=== PATIENT | male | born 1940 | race Two or more races ===

== ENCOUNTER 2017-10-08 21:53 | Emergency (ER) | payer MEDICARE, OTHER ==
[~2017-10-08] VITALS: Ht 180.3 cm; Wt 108.0 kg
[~2017-10-08 21:53] MED LIST: ALBU90OI INH; ALBU90OI6; AMLO5; ANDROGEL1.25 GM; ASPI81CH; ASPI81EC PO; ATEN25; ATOR40TA; ATOR40TA PO; AZEL137S; DESL5; DESL5 PO; ESOM20; ESOM20 PO; EXEN5PENI; EXEN5PENI SQ; EZET10; EZET10 PO; FLUSAL1005; FLUSAL2505; FLUT44OIA; FURO40; FURO40 PO; GLIM4; GLIM4 PO; GLIP10ER PO; INSDET100 SQ; INSLIS75I SC; LEVO750 PO; LOSA50; METF850; METF850 PO; MONT10T PO; MULVITMINF; NEBI5 PO; OLME20 PO; OLME20-12.; OMEP20ER PO; PIOG15; PIOG45 PO; PROCODE120 PO; Percocet 5-3251 EACH PO; QUIN260; SITA100T2 PO; TAMS.4ER PO
[2017-10-08 22:38] LABS: BASOPHILS ABSOLUTE AUTO 0.04 K/mm3 (0.00-0.23); BASOPHILS PERCENT AUTO 1 % (0-2); EOSINOPHILS ABSOLUTE AUTO 0.32 K/mm3 (0.00-0.68); EOSINOPHILS PERCENT AUTO 4 % (0-6); Hemoglobin 13.6 g/dL (13.5-17.5); IMMATURE GRAN ABSOLUTE AUTO 0.04 K/mm3 (0.00-0.10); IMMATURE GRAN PERCENT AUTO 1 % (0-1); LYMPHOCYTES PERCENT AUTO 18 % (21-46); MONOCYTES ABSOLUTE AUTO 0.65 K/mm3 (0.16-1.47); MONOCYTES PERCENT AUTO 8 % (4-13); Mean Corpuscular HGB 27.4 pg (26.0-34.0); Mean Corpuscular HGB Conc 33.2 g/dL (31.5-36.5); Mean Corpuscular Volume 83 fL (80-100); Mean Platelet Volume 9.9 fL (9.1-12.4); NEUTROPHILS ABSOLUTE AUTO 5.72 K/mm3 (1.96-9.15); NEUTROPHILS PERCENT AUTO 69 % (41-73); Platelet Count 245 K/mm3 (150-400); RDW Coefficient Variation 14.3 % (11.7-14.2); RDW Standard Deviation 42.8 fL (35.1-46.3); Red Blood Cell Count 4.97 M/mm3 (4.30-5.90); White Blood Cell Count 8.27 K/mm3 (4.00-11.30)
[2017-10-08 22:58] LABS: Alanine Aminotransfer (ALT/SGP 34 U/L (12-78); Albumin, Blood 3.5 g/dL (3.4-5.0); Albumin/Globulin Ratio 1.1 (0.8-1.8); Alk Phos 135 U/L (50-136); Anion Gap 9 mmol/L (6-16); Aspartate Aminotrans (AST/SGOT 29 U/L (12-37); Bilirubin, Total 0.4 mg/dL (0.1-1.0); Blood Urea Nitrogen 22 mg/dL (8-24); Bun/Creatinine Ratio 17.5 (12.0-20.0); CO2, Blood 25 mmol/L (21-32); Calcium, Blood 8.9 mg/dL (8.5-10.1); Chloride, Blood 105 mmol/L (98-108); Creatinine, Blood 1.26 mg/dL (0.60-1.20); Globulin, Blood 3.3 g/dL (2.2-4.0); Glomerular Filtration Rate 59 (60-); Glucose, Blood 289 mg/dL (70-99); Potassium, Blood 3.9 mmol/L (3.5-5.5); Sodium, Blood 139 mmol/L (136-145); Total Protein, Blood 6.8 g/dL (6.4-8.2); Troponin I <0.015 ng/mL (0.000-0.040)
[2017-10-10] MEDS ORDERED: TRESIBA FL200 UNIT/1 (14:44)
[2017-10-10] MEDS ORDERED: METF500C PO (14:44)
[2017-10-10] MEDS ORDERED: Excedrin Extra1 EACH PO (14:45)
[2017-10-10] MEDS ORDERED: AMLO10 PO (14:45)
[2017-10-10] MEDS ORDERED: Allegra-D 12 H1 EACH PO (14:45)
== END 2017-10-09 00:04 | disposition home or self-care (01) ==
LOC: ER 21:53
PROVIDERS: Physician Assistant
DX: Z45.018 Encounter for adjustment and management of other part of cardiac pacemaker (principal); I10 Essential (primary) hypertension; E11.9 Type 2 diabetes mellitus without complications; I25.10 Atherosclerotic heart disease of native coronary artery without angina pectoris; Z88.0 Allergy status to penicillin; Z79.899 Other long term (current) drug therapy; Z79.82 Long term (current) use of aspirin
CPT/HCPCS: 80053; 84484; 85025; 93005; 93010; 99283

== ENCOUNTER 2017-10-11 05:44 | Day surgery (SDC) | payer MEDICARE, OTHER ==
[~2017-10-11] VITALS: Ht 172.7 cm; Wt 109.0 kg
[~2017-10-11 05:44] MED LIST changes: +AMLO10 PO; +Allegra-D 12 H1 EACH PO; +Excedrin Extra1 EACH PO; +METF500C PO; +TRESIBA FL200 UNIT/1
== END 2017-10-11 22:45 | disposition home or self-care (01) ==
LOC: MHTC 05:44
PROC: 0JH606Z Insertion of Pacemaker, Dual Chamber into Chest Subcutaneous Tissue and Fascia, Open Approach (ICD-10-PCS; principal; 2017-10-11)
PROC: 0JPT0PZ Removal of Cardiac Rhythm Related Device from Trunk Subcutaneous Tissue and Fascia, Open Approach (ICD-10-PCS; principal; 2017-10-11)
DX: Z45.010 Encounter for checking and testing of cardiac pacemaker pulse generator [battery] (principal); I49.5 Sick sinus syndrome; I25.10 Atherosclerotic heart disease of native coronary artery without angina pectoris; I10 Essential (primary) hypertension; E78.00 Pure hypercholesterolemia, unspecified; E11.9 Type 2 diabetes mellitus without complications; E03.9 Hypothyroidism, unspecified; Z88.8 Allergy status to other drugs, medicaments and biological substances; Z79.899 Other long term (current) drug therapy; Z90.49 Acquired absence of other specified parts of digestive tract; Z95.1 Presence of aortocoronary bypass graft; Z87.891 Personal history of nicotine dependence
CPT/HCPCS: 33228; 82947; 93005; 93010; 99152; 99153; C1785; J0690; J1644; J2250; J3010; J7030; J7040

== ENCOUNTER → 2018-07-14 | Outpatient (CLI) | payer MEDICARE, OTHER ==
[~2018-07-14] MED LIST changes: +Humalog100 UNIT/1; +KETO200ER PO; +LEVSOD100 PO
== END | disposition home or self-care (01) ==
LOC: LAB 16:20 → LAB SHORT 16:20
DX: L08.9 Local infection of the skin and subcutaneous tissue, unspecified (principal); L57.0 Actinic keratosis; D48.5 Neoplasm of uncertain behavior of skin; L82.0 Inflamed seborrheic keratosis; L82.1 Other seborrheic keratosis; L81.4 Other melanin hyperpigmentation; D18.01 Hemangioma of skin and subcutaneous tissue
CPT/HCPCS: 87070; 87077; 87147; 87186; 87205

== ENCOUNTER 2020-06-02 13:20 | Day surgery (SDC) | payer MEDICARE, OTHER ==
[~2020-06-02] VITALS: Ht 180.3 cm; Wt 231.4 kg
--- NOTE | 2020-06-02 14:01 | NUR ---
06/02/20 1401 Milady [facility] V 1 FAILED IV IN L HAND, 1 FAILED IV IN L FOREARM, IV PLACED IN L AC.
[2020-08-03] MEDS ORDERED: AMLO5 PO (10:42)
[2020-08-03] MEDS ORDERED: ATOR40TA PO (10:42)
[2020-08-03] MEDS ORDERED: Aspirin EC81 MG PO (10:42)
[2020-08-03] MEDS ORDERED: VITAMIN D325 MC3 PO (10:42)
[2020-08-03] MEDS ORDERED: FURO40 PO (10:43)
[2020-08-03] MEDS ORDERED: GLIP10 PO (10:43)
[2020-08-03] MEDS ORDERED: ALLEGRA ALLERGY60 MG PO (10:43)
[2020-08-03] MEDS ORDERED: FURO20 PO (10:43)
[2020-08-03] MEDS ORDERED: HUMALOG KW100 UNIT/1 (10:44)
[2020-08-03] MEDS ORDERED: LEVSOD100 PO (10:45)
[2020-08-03] MEDS ORDERED: Ketoconazole120 ML (10:45)
[2020-08-03] MEDS ORDERED: Ketoconazole15 GM (10:45)
[2020-08-03] MEDS ORDERED: SITA100T2 PO (10:46)
[2020-08-03] MEDS ORDERED: OMEP20ER PO (10:46)
[2020-08-03] MEDS ORDERED: METF500 (10:46)
[2020-08-03] MEDS ORDERED: Bystolic20 MG PO (10:46)
[2020-08-03] MEDS ORDERED: MONT10T PO (10:46)
[2020-08-03] MEDS ORDERED: FLOMAX0.4 MG PO (10:47)
== END 2020-06-02 16:53 | disposition home or self-care (01) ==
LOC: ORSCSDS 13:20
PROVIDERS: Podiatrist
PROC: 0KNW0ZZ Release Left Foot Muscle, Open Approach (ICD-10-PCS; principal; 2020-06-02 15:15)
DX: M72.2 Plantar fascial fibromatosis (principal); E11.9 Type 2 diabetes mellitus without complications; Z95.0 Presence of cardiac pacemaker; I10 Essential (primary) hypertension; E78.00 Pure hypercholesterolemia, unspecified; E66.9 Obesity, unspecified; Z68.35 Body mass index [BMI] 35.0-35.9, adult; Z79.82 Long term (current) use of aspirin; Z79.4 Long term (current) use of insulin; Z79.899 Other long term (current) drug therapy
CPT/HCPCS: 82947; 88305; J0690; J2250; J2704; J3010

== ENCOUNTER → 2021-01-25 | Outpatient (CLI) | payer MEDICARE, OTHER ==
[~2021-01-25] MED LIST changes: +ALLEGRA ALLERGY60 MG PO; +AMLO5 PO; +Aspirin EC81 MG PO; +Bystolic20 MG PO; +FLOMAX0.4 MG PO; +FURO20 PO; +GLIP10 PO; +HUMALOG KW100 UNIT/1; +Ketoconazole120 ML; +Ketoconazole15 GM; +METF500; +VITAMIN D325 MC3 PO
[2021-01-25 11:04] LABS: C DIFFICILE DNA NEGATIVE (Negative)
== END | disposition home or self-care (01) ==
LOC: LAB SHORT 14:45
PROVIDERS: Internal Medicine Nephrology
DX: N18.30 Chronic kidney disease, stage 3 unspecified (principal); D63.1 Anemia in chronic kidney disease; N25.81 Secondary hyperparathyroidism of renal origin; E55.9 Vitamin D deficiency, unspecified; E78.00 Pure hypercholesterolemia, unspecified; M10.9 Gout, unspecified; R94.5 Abnormal results of liver function studies; R94.6 Abnormal results of thyroid function studies; R76.9 Abnormal immunological finding in serum, unspecified
CPT/HCPCS: 87493

== ENCOUNTER 2021-03-17 10:58 | Emergency (ER) | payer MEDICARE, OTHER ==
[~2021-03-17] VITALS: Ht 180.3 cm; Wt 97.5 kg
[2021-03-17] MEDS ORDERED: Suphedrine PE10 MG PO (13:43)
== END 2021-03-17 13:51 | disposition home or self-care (01) ==
LOC: ER 10:58
DX: J06.9 Acute upper respiratory infection, unspecified (principal); I10 Essential (primary) hypertension; I25.10 Atherosclerotic heart disease of native coronary artery without angina pectoris; Z88.8 Allergy status to other drugs, medicaments and biological substances; Z79.82 Long term (current) use of aspirin; Z79.899 Other long term (current) drug therapy; Z79.84 Long term (current) use of oral hypoglycemic drugs; Z87.891 Personal history of nicotine dependence
CPT/HCPCS: 71045; 99283-25

== ENCOUNTER → 2021-10-17 | Outpatient (CLI) | payer MEDICARE, OTHER ==
[~2021-10-17] MED LIST changes: +Suphedrine PE10 MG PO
== END | disposition home or self-care (01) ==
LOC: LAB SHORT 21:30 → LAB 21:30 → LAB FUT 10-16 15:10
DX: K52.9 Noninfective gastroenteritis and colitis, unspecified (principal)
CPT/HCPCS: 87177; 87209

== ENCOUNTER 2022-09-20 08:33 | Day surgery (SDC) | payer MEDICARE ==
[~2022-09-20] VITALS: Ht 180.3 cm; Wt 101.0 kg
[2022-09-20] VITALS (10 sets, daily range): BP systolic 131–147; BP diastolic 49–67
[~2022-09-20 08:33] MED LIST changes: +FARXIGA10 MG PO; -FLOMAX0.4 MG PO; +FLOMAX0.4 MG UD; +FLUT1DIS2 INH; +NITR.4SL SL; +Nitroglycerin1 EAC3 TOP; +TESTOSTERONE100 MG IL; +TRESIBA FL100 UNIT/2
[2022-09-20 09:21] LABS: BASOPHILS ABSOLUTE AUTO 0.04 K/mm3 (0.00-0.23); BASOPHILS PERCENT AUTO 0 % (0-2); EOSINOPHILS ABSOLUTE AUTO 0.18 K/mm3 (0.00-0.68); EOSINOPHILS PERCENT AUTO 2 % (0-6); IMMATURE GRAN ABSOLUTE AUTO 0.04 K/mm3 (0.00-0.10); IMMATURE GRAN PERCENT AUTO 0 % (0-1); LYMPHOCYTES ABSOLUTE AUTO 1.38 K/mm3 (0.84-5.20); LYMPHOCYTES PERCENT AUTO 14 % (21-46); MONOCYTES ABSOLUTE AUTO 0.65 K/mm3 (0.16-1.47); MONOCYTES PERCENT AUTO 7 % (4-13); Mean Corpuscular HGB 24.6 pg (26.0-34.0); Mean Corpuscular HGB Conc 31.1 g/dL (31.5-36.5); Mean Corpuscular Volume 79 fL (80-100); Mean Platelet Volume 9.7 fL (9.1-12.4); NEUTROPHILS ABSOLUTE AUTO 7.49 K/mm3 (1.96-9.15); NEUTROPHILS PERCENT AUTO 77 % (41-73); Platelet Count 296 K/mm3 (150-400); RDW Coefficient Variation 15.1 % (11.7-14.2); RDW Standard Deviation 43.1 fL (35.1-46.3); Red Blood Cell Count 5.69 M/mm3 (4.30-5.90); White Blood Cell Count 9.78 K/mm3 (4.00-11.30)
[2022-09-20 09:34] LABS: Calcium, Blood 9.3 mg/dL (8.5-10.1); Creatinine, Blood 1.47 mg/dL (0.60-1.20); Potassium, Blood 4.8 mmol/L (3.5-5.5)
[2022-09-20 09:45] LABS: International Normalized Ratio 1.04; Prothrombin Time Results 10.9 Sec (9.7-11.5)
--- NOTE | 2022-09-20 11:25 | NUR ---
PATIENT ARRIVED TO RECOVERY ROOM SITTING UPRIGHT IN RECLINER, CONVERSING APPROPRIATELY. L RADIAL TR BAND FULLY INFLATED. SITE C/D/I SOFT/NONTENDER, NO EVIDNECE OF HEMATOMA. GOOD PLEUTH WAVE. PATIENT DENYING ANY CP. VSS ON ROOM AIR.
--- NOTE | 2022-09-20 11:50 | NUR ---
PATIENT SITTING UPRIGHT IN RECLINER, TOLERATING PO INTAKE WELL. VSS ON ROOM AIR. L TR BAND FULLY INFLATED, SITE C/D/I SOFT/NONTENDER, NO EVIDENCE OF HEMATOMA. GOOD PLEUTH WAVE. VSS ON ROOM AIR.
--- NOTE | 2022-09-20 12:57 | NUR ---
3 CC OF AIR REMOVED FROM L RADIAL TR BAND. SITE C/D/I SOFT/NONTENDER, NO EVIDENCE OF HEMATOMA. GOOD PLEUTH WAVE. PATIENT DENYING ANY PAIN, VSS ON ROOM AIR. DISCHARGE PAPERWORK DISCUSSED WITH PATIENT AND DAUGHTER AT BEDSIDE. ALL QUESTIONS ANSWERED.
--- NOTE | 2022-09-20 13:30 | NUR ---
ALL AIR REMOVED FROM L RADIAL TR BAND. SITE C/D/I SOFT/NONTENDER, NO EVIDENCE OF HEMATOMA. GOOD PLEUTH WAVE. VSS ON ROOM AIR. PATIENT RESTING COMFORTABNLY IN RECLINER.
--- NOTE | 2022-09-20 14:07 | NUR ---
PATIENT AMBULATING WITHOUT DIFFICULTY. PIV REMOVED WITHOUT DIFFICULTY, CATHETER INTACT. L TR BAND REMOVED, CLOTH DOT APPLIED. SITE C/D/I SOFT/NONTENDER, NO EVIDENCE OF HEMATOMA. VSS ON ROOM AIR.
--- NOTE | 2022-09-20 14:20 | NUR ---
PATIENT DISCHARGED HOME AT THIS TIME. ALL PATIENT BELONGINGS AND PAPERWORK LEFT IWHT PATIENT. PATIENT WHEELED TO HOSPITAL ENTRANCE, DAUGHTER, MARYSOL ABLE TO PROVIDE TRANSPORTATION HOME.
== END 2022-09-20 14:20 | disposition home or self-care (01) ==
LOC: MHTC 08:33
PROVIDERS: Internal Medicine Cardiovascular Disease
PROC: B211YZZ Fluoroscopy of Multiple Coronary Arteries using Other Contrast (ICD-10-PCS; principal; 2022-09-20)
DX: R07.89 Other chest pain (principal); R06.00 Dyspnea, unspecified; I25.10 Atherosclerotic heart disease of native coronary artery without angina pectoris; I10 Essential (primary) hypertension; E11.9 Type 2 diabetes mellitus without complications; E78.5 Hyperlipidemia, unspecified; E03.9 Hypothyroidism, unspecified; J45.909 Unspecified asthma, uncomplicated; Z95.1 Presence of aortocoronary bypass graft; Z88.8 Allergy status to other drugs, medicaments and biological substances; Z79.82 Long term (current) use of aspirin; Z95.0 Presence of cardiac pacemaker; Z79.51 Long term (current) use of inhaled steroids; Z79.899 Other long term (current) drug therapy; Z79.4 Long term (current) use of insulin; Z79.890 Hormone replacement therapy; Z79.84 Long term (current) use of oral hypoglycemic drugs
CPT/HCPCS: 76937; 80048; 85025; 85610; 93455; 99152; 99153; A9270; C1769; C1894; J1644; J2250; J3010; J7030; J7050; Q9967

== ENCOUNTER 2023-01-03 20:30 | Emergency (ER) | payer MEDICARE ==
[~2023-01-03] VITALS: Ht 180.3 cm; Wt 94.8 kg
[2023-01-03 20:38] VITALS: BP 162/63
== END 2023-01-03 21:59 | disposition home or self-care (01) ==
LOC: ER 20:30
DX: S90.122A Contusion of left lesser toe(s) without damage to nail, initial encounter (principal); W22.8XXA Striking against or struck by other objects, initial encounter; Z88.8 Allergy status to other drugs, medicaments and biological substances; Z79.899 Other long term (current) drug therapy; Z79.84 Long term (current) use of oral hypoglycemic drugs; Z79.4 Long term (current) use of insulin; Z79.82 Long term (current) use of aspirin; I10 Essential (primary) hypertension; I25.10 Atherosclerotic heart disease of native coronary artery without angina pectoris; Z87.891 Personal history of nicotine dependence
CPT/HCPCS: 73620; 99283-25

== ENCOUNTER 2023-05-20 06:40 | Emergency (ER) | payer MEDICARE ==
[~2023-05-20] VITALS: Ht 180.3 cm; Wt 99.8 kg
[2023-05-20 07:55] LABS: BASOPHILS ABSOLUTE AUTO 0.03 K/mm3 (0.00-0.23); BASOPHILS PERCENT AUTO 0 % (0-2); EOSINOPHILS ABSOLUTE AUTO 0.07 K/mm3 (0.00-0.68); EOSINOPHILS PERCENT AUTO 1 % (0-6); Hematocrit 43.2 % (37.0-53.0); Hemoglobin 13.7 g/dL (13.5-17.5); IMMATURE GRAN ABSOLUTE AUTO 0.03 K/mm3 (0.00-0.10); IMMATURE GRAN PERCENT AUTO 0 % (0-1); LYMPHOCYTES ABSOLUTE AUTO 0.99 K/mm3 (0.84-5.20); LYMPHOCYTES PERCENT AUTO 9 % (21-46); MONOCYTES PERCENT AUTO 7 % (4-13); Mean Corpuscular HGB Conc 31.7 g/dL (31.5-36.5); Mean Corpuscular Volume 76 fL (80-100); Mean Platelet Volume 9.7 fL (9.1-12.4); NEUTROPHILS ABSOLUTE AUTO 8.91 K/mm3 (1.96-9.15); NEUTROPHILS PERCENT AUTO 83 % (41-73); Platelet Count 255 K/mm3 (150-400); RDW Coefficient Variation 17.8 % (11.7-14.2); RDW Standard Deviation 46.9 fL (35.1-46.3); Red Blood Cell Count 5.71 M/mm3 (4.30-5.90); White Blood Cell Count 10.73 K/mm3 (4.00-11.30)
[2023-05-20 08:10] LABS: Albumin, Blood 3.5 g/dL (3.4-5.0); Albumin/Globulin Ratio 1.1 (0.8-1.8); Bilirubin, Total 0.7 mg/dL (0.1-1.0); Bun/Creatinine Ratio 28.7 (12.0-20.0); Calcium, Blood 9.2 mg/dL (8.5-10.1); Creatinine, Blood 1.5 mg/dL (0.60-1.20); Globulin, Blood 3.2 g/dL (2.2-4.0); Magnesium, Blood 2.5 mg/dL (1.6-2.4); Potassium, Blood 4.3 mmol/L (3.5-5.5); Total Protein, Blood 6.7 g/dL (6.4-8.2)
[2023-05-20 11:00] VITALS: BP 175/68
== END 2023-05-20 11:29 | disposition home or self-care (01) ==
LOC: ER 06:40
PROVIDERS: Physician Assistant
DX: R55 Syncope and collapse (principal); M79.605 Pain in left leg; M79.604 Pain in right leg; S40.811A Abrasion of right upper arm, initial encounter; I10 Essential (primary) hypertension; E11.9 Type 2 diabetes mellitus without complications; I25.10 Atherosclerotic heart disease of native coronary artery without angina pectoris; Z45.018 Encounter for adjustment and management of other part of cardiac pacemaker; Z88.8 Allergy status to other drugs, medicaments and biological substances; Z87.891 Personal history of nicotine dependence; W18.30XA Fall on same level, unspecified, initial encounter
CPT/HCPCS: 70450; 80053; 83735; 85025; 93005; 93010; 93280; 93925; 99284-25

== ENCOUNTER 2024-06-08 06:20 | Emergency (ER) | payer MEDICARE ==
[~2024-06-08] VITALS: Ht 180.3 cm; Wt 96.2 kg
[2024-06-08] MEDS ORDERED: Benzonatate 100 MG Cap PO ONE (07:20)
[2024-06-08 08:35] LABS: BASOPHILS ABSOLUTE AUTO 0.03 K/mm3 (0.00-0.23); BASOPHILS PERCENT AUTO 0 % (0-2); EOSINOPHILS ABSOLUTE AUTO 0.02 K/mm3 (0.00-0.68); EOSINOPHILS PERCENT AUTO 0 % (0-6); Hematocrit 44.1 % (37.0-53.0); IMMATURE GRAN ABSOLUTE AUTO 0.04 K/mm3 (0.00-0.10); IMMATURE GRAN PERCENT AUTO 1 % (0-1); LYMPHOCYTES ABSOLUTE AUTO 0.61 K/mm3 (0.84-5.20); LYMPHOCYTES PERCENT AUTO 7 % (21-46); MONOCYTES ABSOLUTE AUTO 0.88 K/mm3 (0.16-1.47); MONOCYTES PERCENT AUTO 10 % (4-13); Mean Corpuscular HGB 26.9 pg (26.0-34.0); Mean Corpuscular HGB Conc 31.7 g/dL (31.5-36.5); Mean Corpuscular Volume 85 fL (80-100); Mean Platelet Volume 9.6 fL (9.1-12.4); NEUTROPHILS ABSOLUTE AUTO 7.09 K/mm3 (1.96-9.15); NEUTROPHILS PERCENT AUTO 82 % (41-73); Platelet Count 274 K/mm3 (150-400); RDW Coefficient Variation 15.2 % (11.7-14.2); White Blood Cell Count 8.67 K/mm3 (4.00-11.30)
[2024-06-08 08:56] LABS: Albumin/Globulin Ratio 1.1 (0.8-1.8); Bilirubin, Total 0.7 mg/dL (0.1-1.0); Bun/Creatinine Ratio 17.3 (12.0-20.0); Calcium, Blood 9.7 mg/dL (8.5-10.1); Creatinine, Blood 2.26 mg/dL (0.60-1.20); Globulin, Blood 3.7 g/dL (2.2-4.0); Potassium, Blood 4.5 mmol/L (3.5-5.5); Total Protein, Blood 7.7 g/dL (6.4-8.2)
[2024-06-08 09:50] LABS: Influenza B, PCR NEGATIVE (NEGATIVE); Resp Syncytial Virus, PCR NEGATIVE (NEGATIVE); SARS-Cov-2 (COVID-19) PCR, MMC NEGATIVE (NEGATIVE)
[2024-06-08 10:01] LABS: Influenza A, PCR POSITIVE (NEGATIVE)
[2024-06-08] MEDS ORDERED: Oseltamvir Phosphate 6 MG/ML 1MLORALSYR PO ONE (10:15)
[2024-06-08] MEDS ORDERED: OSELTAMIVIR PHO3011 PO (10:17)
[2024-06-08] MEDS ORDERED: Oseltamvir Phosphate 30 MG Cap PO ONE (10:20)
[2024-06-08 10:54] VITALS: BP 136/64
== END 2024-06-08 10:58 | disposition home or self-care (01) ==
LOC: ER 06:20
PROVIDERS: Emergency Medicine
DX: J10.1 Influenza due to other identified influenza virus with other respiratory manifestations (principal); R07.89 Other chest pain; I12.9 Hypertensive chronic kidney disease with stage 1 through stage 4 chronic kidney disease, or unspecified chronic kidney disease; N18.9 Chronic kidney disease, unspecified; K21.9 Gastro-esophageal reflux disease without esophagitis; E03.9 Hypothyroidism, unspecified; E11.9 Type 2 diabetes mellitus without complications; Z79.82 Long term (current) use of aspirin; Z79.51 Long term (current) use of inhaled steroids; Z79.4 Long term (current) use of insulin; Z79.84 Long term (current) use of oral hypoglycemic drugs; Z79.899 Other long term (current) drug therapy; Z88.8 Allergy status to other drugs, medicaments and biological substances
CPT/HCPCS: 0241U; 36415; 71046; 80053; 84484; 85025; 93005; 93010; 99284-25; A9270

== ENCOUNTER 2024-12-25 11:26 | Day surgery (SDC) | payer MEDICARE ==
[~2024-12-25] VITALS: Ht 180.3 cm; Wt 93.5 kg
[~2024-12-25 11:26] MED LIST changes: +OSELTAMIVIR PHO3011 PO
[2024-12-25] MEDS ORDERED: Vitamin B-12100 MCG (11:52)
[2024-12-25] MEDS ORDERED: CATAPRES-TTS 11 EAC1 (11:52)
[2024-12-25] MEDS ORDERED: HUMALOG100 UNIT/1 (11:56)
[2024-12-25] MEDS ORDERED: TRESIBA FL100 UNIT/2 (11:57)
[2024-12-25 13:15] VITALS: BP 111/51
== END 2024-12-25 13:23 | disposition home or self-care (01) ==
LOC: ORSCSDS 11:26
PROVIDERS: Internal Medicine Gastroenterology
PROC: 0DB58ZX Excision of Esophagus, Via Natural or Artificial Opening Endoscopic, Diagnostic (ICD-10-PCS; principal; 2024-12-25 13:45)
DX: R13.10 Dysphagia, unspecified (principal); K21.00 Gastro-esophageal reflux disease with esophagitis, without bleeding; K22.70 Barrett's esophagus without dysplasia; I48.91 Unspecified atrial fibrillation; E11.22 Type 2 diabetes mellitus with diabetic chronic kidney disease; N18.30 Chronic kidney disease, stage 3 unspecified; Z79.4 Long term (current) use of insulin; I12.9 Hypertensive chronic kidney disease with stage 1 through stage 4 chronic kidney disease, or unspecified chronic kidney disease; Z98.890 Other specified postprocedural states; E78.5 Hyperlipidemia, unspecified; Z95.0 Presence of cardiac pacemaker; I25.10 Atherosclerotic heart disease of native coronary artery without angina pectoris; G47.33 Obstructive sleep apnea (adult) (pediatric); Z79.84 Long term (current) use of oral hypoglycemic drugs; Z79.899 Other long term (current) drug therapy
CPT/HCPCS: 82947; 88305; J2704; J7120

== ENCOUNTER 2025-03-10 10:44 | Inpatient (IN) | payer MEDICARE ==
[~2025-03-10] VITALS: Ht 180.3 cm; Wt 86.2 kg
[~2025-03-10 10:44] MED LIST changes: +CATAPRES-TTS 11 EAC1; -FLOMAX0.4 MG UD; +HUMALOG100 UNIT/1; +Vitamin B-12100 MCG
[2025-03-10] MEDS ORDERED: FLU VACC TS2025(65UP)/MF59C/PF 45 MCG/0.5 ML SYRINGE IM SCH (15:35)
[2025-03-10] MEDS ORDERED: FentaNYL Citrate 50 MCG/ML 2 ML Injection IV PRN (15:35)
[2025-03-10] MEDS ORDERED: HYDROcodone 5-APAP 325 TAB PO PRN (15:40)
[2025-03-10] MEDS ORDERED: Insulin Regular 100 UNIT/ML 10ML Vial SC SCH (16:30)
[2025-03-10 18:16] LABS: BASOPHILS ABSOLUTE AUTO 0.03 K/mm3 (0.00-0.23); BASOPHILS PERCENT AUTO 0 % (0-2); EOSINOPHILS ABSOLUTE AUTO 0.27 K/mm3 (0.00-0.68); EOSINOPHILS PERCENT AUTO 3 % (0-6); Hematocrit 36.1 % (37.0-53.0); Hemoglobin 11.7 g/dL (13.5-17.5); IMMATURE GRAN ABSOLUTE AUTO 0.06 K/mm3 (0.00-0.10); IMMATURE GRAN PERCENT AUTO 1 % (0-1); LYMPHOCYTES ABSOLUTE AUTO 0.82 K/mm3 (0.84-5.20); LYMPHOCYTES PERCENT AUTO 9 % (21-46); MONOCYTES ABSOLUTE AUTO 0.71 K/mm3 (0.16-1.47); MONOCYTES PERCENT AUTO 8 % (4-13); Mean Corpuscular HGB Conc 32.4 g/dL (31.5-36.5); Mean Corpuscular Volume 91 fL (80-100); NEUTROPHILS ABSOLUTE AUTO 7.45 K/mm3 (1.96-9.15); NEUTROPHILS PERCENT AUTO 80 % (41-73); NRBC ABSOLUTE 0.00 K/mm3 (0.00-0.02); NRBC Auto 0.0 /100 WBC (0.0-0.2); Platelet Count 246 K/mm3 (150-400); RDW Coefficient Variation 14.8 % (11.7-14.2); RDW Standard Deviation 48.2 fL (35.1-46.3)
[2025-03-10 18:25] VITALS: BP 159/54
[2025-03-10 18:32] LABS: Alanine Aminotransfer (ALT/SGP 34.0 U/L (12-78); Albumin, Blood 3.3 g/dL (3.4-5.0); Albumin/Globulin Ratio 1.1 (0.8-1.8); Anion Gap 9.0 mmol/L (3-11); Aspartate Aminotrans (AST/SGOT 39.0 U/L (12-37); Bilirubin, Total 0.7 mg/dL (0.1-1.0); Blood Urea Nitrogen 48.0 mg/dL (8-24); CO2, Blood 22.0 mmol/L (21-32); Calcium, Blood 8.9 mg/dL (8.5-10.1); Chloride, Blood 112.0 mmol/L (98-108); Creatinine, Blood 2.11 mg/dL (0.60-1.20); Globulin, Blood 2.9 g/dL (2.2-4.0); Glucose, Blood 62.0 mg/dL (70-99); Potassium, Blood 3.8 mmol/L (3.5-5.5); Sodium, Blood 139.0 mmol/L (136-145); Total Protein, Blood 6.2 g/dL (6.4-8.2)
--- NOTE | 2025-03-10 19:32 | NUR ---
ADMIT:REPORT RECEIVED FROM INCLUSION SPECIAL EDUCATOR. PT TO UNIT AT 1830, A/O, VSS. BILAT KNEE IMMOBILIZERS IN PLACE. PT WIGGLE TOES, PEDAL PULSE +1. PT DENIES NEED FOR PAIN MEDICATION. HELPED ONTO BEDPAN, TURNS WELL, SKIN INTACT ON BACK SIDE. PT VOIDED AND PASSED GAS. ORIENTED TO ROOM, CALL LIGHT IN REACH
[2025-03-10 20:40] VITALS: BP 140/52
[2025-03-10] MEDS ORDERED: FUROSEMIDE40 MG PO (21:39)
[2025-03-11 03:42] VITALS: BP 146/54
--- NOTE | 2025-03-11 04:52 | NUR ---
SHIFT SUMMARY PT ADMITTED ON 03/10/25 FOR R QUADRICEP TENDON RUPTURE AND PARTIAL THICKNESS L QUADRICEP TENDON TEAR. A&O X4. VSS. PT NPO SINCE 0000. PT STATES PAIN IS TOLERABLE AT 5/10 AND REFUSED PHARMACOLOGIC INTERVENTIONS. BILATERAL LOWER EXTREMITY IMMOBILIZERS IN PLACE. PT RESTING IN BED, RESPIRATIONS EVEN AND UNLABORED. CALL LIGHT WITHIN REACH.
[2025-03-11 05:34] LABS: BASOPHILS ABSOLUTE AUTO 0.03 K/mm3 (0.00-0.23); BASOPHILS PERCENT AUTO 0 % (0-2); EOSINOPHILS ABSOLUTE AUTO 0.32 K/mm3 (0.00-0.68); EOSINOPHILS PERCENT AUTO 4 % (0-6); Hematocrit 33.4 % (37.0-53.0); Hemoglobin 10.9 g/dL (13.5-17.5); IMMATURE GRAN ABSOLUTE AUTO 0.05 K/mm3 (0.00-0.10); IMMATURE GRAN PERCENT AUTO 1 % (0-1); LYMPHOCYTES ABSOLUTE AUTO 0.77 K/mm3 (0.84-5.20); LYMPHOCYTES PERCENT AUTO 9 % (21-46); MONOCYTES ABSOLUTE AUTO 0.76 K/mm3 (0.16-1.47); MONOCYTES PERCENT AUTO 9 % (4-13); Mean Corpuscular HGB Conc 32.6 g/dL (31.5-36.5); Mean Corpuscular Volume 89 fL (80-100); NEUTROPHILS ABSOLUTE AUTO 6.68 K/mm3 (1.96-9.15); NEUTROPHILS PERCENT AUTO 78 % (41-73); NRBC ABSOLUTE 0.00 K/mm3 (0.00-0.02); NRBC Auto 0.0 /100 WBC (0.0-0.2); Platelet Count 201 K/mm3 (150-400); RDW Coefficient Variation 14.8 % (11.7-14.2); RDW Standard Deviation 47.6 fL (35.1-46.3)
[2025-03-11 05:59] LABS: Anion Gap 9.0 mmol/L (3-11); Blood Urea Nitrogen 48.0 mg/dL (8-24); CO2, Blood 23.0 mmol/L (21-32); Calcium, Blood 8.6 mg/dL (8.5-10.1); Chloride, Blood 111.0 mmol/L (98-108); Creatinine, Blood 2.01 mg/dL (0.60-1.20); Glucose, Blood 173.0 mg/dL (70-99); Potassium, Blood 4.0 mmol/L (3.5-5.5); Sodium, Blood 139.0 mmol/L (136-145)
[2025-03-11 07:17] VITALS: BP 157/54
[2025-03-11] MEDS ORDERED: Enoxaparin 40 MG/0.4 ML SYR SC SCH (09:00)
[2025-03-11] MEDS ORDERED: Albuterol HFA200 ACT/6.7 GM INH INH PRN (10:05)
[2025-03-11 11:56] VITALS: BP 147/58
[2025-03-11 13:58] VITALS: BP 142/58
--- NOTE | 2025-03-11 16:56 | NUR ---
SHIFT SUMMARY PATIENT IS AOX4, IMOBILIZERS BILAT LE. MEDICATED FOR PAIN PER EMAR. REG DIET ORDERED TODAY PLAN FOR SURGERY TOMORROW. CBG AC/HS. USING URINAL AT BEDSIDE. ABLE TO MAKE NEEDS KNOWN. VSS, CALL LIGHT IN REACH.
[2025-03-11 19:54] VITALS: BP 143/56
[2025-03-12] VITALS (18 sets, daily range): BP systolic 127–182; BP diastolic 47–67
--- NOTE | 2025-03-12 04:22 | NUR ---
SHIFT SUMMARY CHELSEA WAS ALERT AND FULLY ORIENTED ON ASSESSMENT. PT DENIES PAIN, CHEST PAIN, NAUSEA, SOB. CIRCULATION/ SENSATION INTACT TO EXTS. PT ON BEDREST. NO ACUTE EVENTS TONIGHT. PT SLEEPING WELL T/O SHIFT.
[2025-03-12 04:32] LABS: BASOPHILS ABSOLUTE AUTO 0.05 K/mm3 (0.00-0.23); BASOPHILS PERCENT AUTO 1 % (0-2); EOSINOPHILS ABSOLUTE AUTO 0.31 K/mm3 (0.00-0.68); EOSINOPHILS PERCENT AUTO 4 % (0-6); Hematocrit 33.4 % (37.0-53.0); Hemoglobin 11.1 g/dL (13.5-17.5); IMMATURE GRAN ABSOLUTE AUTO 0.06 K/mm3 (0.00-0.10); IMMATURE GRAN PERCENT AUTO 1 % (0-1); LYMPHOCYTES ABSOLUTE AUTO 0.84 K/mm3 (0.84-5.20); LYMPHOCYTES PERCENT AUTO 9 % (21-46); MONOCYTES ABSOLUTE AUTO 0.69 K/mm3 (0.16-1.47); MONOCYTES PERCENT AUTO 8 % (4-13); Mean Corpuscular HGB Conc 33.2 g/dL (31.5-36.5); Mean Corpuscular Volume 90 fL (80-100); NEUTROPHILS ABSOLUTE AUTO 6.97 K/mm3 (1.96-9.15); NEUTROPHILS PERCENT AUTO 78 % (41-73); NRBC ABSOLUTE 0.00 K/mm3 (0.00-0.02); NRBC Auto 0.0 /100 WBC (0.0-0.2); Platelet Count 212 K/mm3 (150-400); RDW Coefficient Variation 15.0 % (11.7-14.2); RDW Standard Deviation 48.6 fL (35.1-46.3)
[2025-03-12 05:06] LABS: Anion Gap 7.0 mmol/L (3-11); Blood Urea Nitrogen 46.0 mg/dL (8-24); CO2, Blood 24.0 mmol/L (21-32); Calcium, Blood 8.6 mg/dL (8.5-10.1); Chloride, Blood 111.0 mmol/L (98-108); Creatinine, Blood 2.07 mg/dL (0.60-1.20); Glucose, Blood 190.0 mg/dL (70-99); Potassium, Blood 4.5 mmol/L (3.5-5.5); Sodium, Blood 137.0 mmol/L (136-145)
[2025-03-12] MEDS ORDERED: FentaNYL Citrate 50 MCG/ML 2 ML Injection IV PRN ×5 (08:50→12:45)
[2025-03-12] MEDS ORDERED: HYDROmorphone HCl/Pf 1MG SYR IV PRN ×3 (08:50→12:45)
[2025-03-12] MEDS ORDERED: Metoclopramide HCl 5MG / ML 2ML Vial IV PRN (08:55)
[2025-03-12] MEDS ORDERED: Ondansetron HCl 2 MG / ML 2ML Vial IV PRN ×2 (08:55→12:45)
[2025-03-12] MEDS ORDERED: Rocuronium Bromide 10 MG/ML 5ML Injection IV ONE ×2 (10:29→11:01)
[2025-03-12] MEDS ORDERED: FentaNYL Citrate 50 MCG/ML 2 ML Injection ONE ×2 (10:30→13:54)
[2025-03-12] MEDS ORDERED: Bupivacaine 0.5% W/EPI 1:200000 SDV 30 ML Vial ONE (10:33)
[2025-03-12] MEDS ORDERED: CeFAZolin Sodium 2,000 MG in NS 100 ML IV SCH (11:50)
[2025-03-12] MEDS ORDERED: Ondansetron HCl 2 MG / ML 2ML Vial ONE (13:13)
[2025-03-12] MEDS ORDERED: Sugammadex Sodium 200 MG/2ML SDV (100 MG/ML) ONE (13:13)
[2025-03-12] MEDS ORDERED: Ketorolac Tromethamine 30mg Vial ONE (13:13)
[2025-03-12] MEDS ORDERED: Dexamethasone Sod Phos 10 MG/ML 1ML VIAL ONE (13:13)
--- NOTE | 2025-03-12 16:55 | NUR ---
SHIFT NOTE: PT RETURNED TO UNIT AFTER BILATERAL QUAD REPAIR. PT ABLE TO MOVE BOTH ANKLES AND REPORTS MANAGED PAIN. DENIES NAUSEA. HE HAS NOT BEEN OUT OF BED. SIGNIFICANT OTHER IS AT BEDSIDE AND UPDATED ON PLAN OF CARE. PT IS EATING/DRINKING WITHOUT NAUSEA. BOTH LOWER EXTRIMITIES ARE WRAPPED WITH KILO BANDAGE AND IMMOBILIZERS. CALL LIGHT IN REACH, CARE CONTINUES
[2025-03-12] MEDS ORDERED: Insulin Regular 100 UNIT/ML 10ML Vial SC ONE (20:28)
[2025-03-13 03:53] VITALS: BP 156/58
[2025-03-13 03:59] LABS: BASOPHILS ABSOLUTE AUTO 0.02 K/mm3 (0.00-0.23); BASOPHILS PERCENT AUTO 0 % (0-2); EOSINOPHILS ABSOLUTE AUTO 0.00 K/mm3 (0.00-0.68); EOSINOPHILS PERCENT AUTO 0 % (0-6); Hematocrit 34.0 % (37.0-53.0); Hemoglobin 10.8 g/dL (13.5-17.5); IMMATURE GRAN ABSOLUTE AUTO 0.07 K/mm3 (0.00-0.10); IMMATURE GRAN PERCENT AUTO 1 % (0-1); LYMPHOCYTES ABSOLUTE AUTO 0.53 K/mm3 (0.84-5.20); LYMPHOCYTES PERCENT AUTO 4 % (21-46); MONOCYTES ABSOLUTE AUTO 0.84 K/mm3 (0.16-1.47); MONOCYTES PERCENT AUTO 7 % (4-13); Mean Corpuscular HGB Conc 31.8 g/dL (31.5-36.5); Mean Corpuscular Volume 91 fL (80-100); NEUTROPHILS ABSOLUTE AUTO 10.95 K/mm3 (1.96-9.15); NEUTROPHILS PERCENT AUTO 88 % (41-73); NRBC ABSOLUTE 0.00 K/mm3 (0.00-0.02); NRBC Auto 0.0 /100 WBC (0.0-0.2); Platelet Count 223 K/mm3 (150-400); RDW Coefficient Variation 14.6 % (11.7-14.2); RDW Standard Deviation 48.1 fL (35.1-46.3)
--- NOTE | 2025-03-13 04:10 | NUR ---
SHIFT SUMMARY CHELSEA WAS ALERT AND FULLY ORIENTED ON ASSESSMENT. PAIN WELL MANAGED. PT SENSATION/ CIRCULAION INTACT TO EXTS. PT HAS NOT ATTEMPTED AMBULATION AT THIS TIME. IMMOBILIZERS IN PLACE. PT DENIES SOB, NAUSEA, CHEST PAIN. PT VOIDING APPROPRIATELY. DRESSINGS C/D/I NO ACCUTE EVENTS OR NOTED CHANGES TO PT CONDITION.
[2025-03-13 04:16] LABS: Anion Gap 10.0 mmol/L (3-11); Blood Urea Nitrogen 51.0 mg/dL (8-24); CO2, Blood 24.0 mmol/L (21-32); Calcium, Blood 8.5 mg/dL (8.5-10.1); Chloride, Blood 106.0 mmol/L (98-108); Creatinine, Blood 2.29 mg/dL (0.60-1.20); Glucose, Blood 262.0 mg/dL (70-99); Potassium, Blood 5.0 mmol/L (3.5-5.5); Sodium, Blood 135.0 mmol/L (136-145)
[2025-03-13 07:39] VITALS: BP 158/58
[2025-03-13] MEDS ORDERED: DAPAGLIFLOZIN (FARXIGA) 10 MG TABLET PO SCH (09:00)
--- NOTE | 2025-03-13 09:00 | NUR ---
AM NOTE PATIENT ALERT AND ORIENTED X4. ABLE TO MAKE NEEDS KNOWN AND USING CALL LIGHT. BLE IMMOBILIZERS IN PLACE. PHYSICAL THERAPY PLANS THIS MORNING. PERRLA, DENIES NUMBNESS/TINGLING AND PAIN AT THIS TIME. SURGICAL STATUS NO TELE. HR 50-60'S. SBP 150'S. DENIES CHEST PAIN/PRESSURE/PALPIATIONS. BLE EDEMA. IV SALINE LOCKED. ON ROOM AIR, LUNG SOUNDS CLEAR. DENIES SOB/COUGH. TOLERATING PO DIET. ACHS BLOOD SUGAR CHECKS. PATIENT FEELING CONSTIPATED. BOWEL CARE DISCUSSED. DENIES ABDOMINAL PAIN/NAUSEA. USING URINAL TO VOID. MED REC CONFIRMED THIS MORNING. CALL LIGHT IN REACH. DENIES NEEDS AT THIS TIME.
[2025-03-13] MEDS ORDERED: Insulin Regular 100 UNIT/ML 10ML Vial SC SCH ×2 (11:30→16:30)
--- NOTE | 2025-03-13 12:35 | NUR ---
AFTERNOON BLOOD SUGAR 364. DR. ARANA UPDATED. PLAN TO MEDICATED PER EMAR AND RECHECK/REPORT BLOOD SUGAR 2 HOURS AFTER INSULIN ADMINISTRATION. PATIENT REPORTS NOT WANTING TO GO TO SNF IN [place] IF POSSIBLE. PENNY FROM CASE MANAGEMENT UPDATED ON PATIENTS WISHES.
--- NOTE | 2025-03-13 13:45 | NUR ---
2 HOUR RECHECK BLOOD SUGAR READING 370. DR. ARANA UPDATED. ORDERS FOR ADDITIONAL 10 UNITS OF REGULAR INSULIN SC NOW AND REPEAT BLOOD GLUCOSE CHECK IN [address]
[2025-03-13] MEDS ORDERED: Insulin Regular 100 UNIT/ML 10ML Vial SC ONE (13:47)
[2025-03-13] MEDS ORDERED: Docusate Sodium/Senna 1 Tab PO PRN (14:35)
[2025-03-13] MEDS ORDERED: Polyethylene Glycol 3350 17 gm PO PRN (14:35)
[2025-03-13 15:16] VITALS: BP 126/45
--- NOTE | 2025-03-13 15:55 | NUR ---
UPON 2 HOUR SHA TO RECHECK SUGAR, PATIENT BLOOD SUGAR READING 363. DR. ARANA UPDATED. ORDERS TO GIVEN INSULIN PER HIGH SCLIDING SCALE AND RECHECK AGAIN IN 2 HOURS. PATIENT UPDATED ON PLAN OF CARE.
--- NOTE | 2025-03-13 17:26 | NUR ---
DR. ARANA UPDATE ON BLOOD SUGAR OF 326. ORDERS TO HOLD FURTHER COVERAGE AND TO RECHECK AT 1999 FOR HS CHECK.
--- NOTE | 2025-03-13 17:58 | NUR ---
SHIFT SUMMARY: NO ACUTE CHANGES. VITAL SIGNS STABLE. PATIENT REMAINS ALERT AND ORIENTED. NO TELE. ON ROOM AIR. TOLERATING PO DIET. BOWEL MOVEMENT X1 TODAY USING BED WYLIE. UP WITH PHYSICAL THERAPY THIS MORNING. USING URINAL TO VOID. SEE PREVIOUS NOTES REGARDING BLOOD SUGARS. CALL LIGHT IN REACH. DENIES NEEDS.
[2025-03-13 19:04] VITALS: BP 126/76
[2025-03-13] MEDS ORDERED: Insulin Glargine 100 Unit/ML 3 ML SYR SC SCH (21:00)
[2025-03-13] MEDS ORDERED: Heparin Sodium,Porcine 5,000 UNIT/0.5 ML SDV SC SCH (21:00)
[2025-03-14 03:24] LABS: BASOPHILS ABSOLUTE AUTO 0.05 K/mm3 (0.00-0.23); BASOPHILS PERCENT AUTO 1 % (0-2); EOSINOPHILS ABSOLUTE AUTO 0.45 K/mm3 (0.00-0.68); EOSINOPHILS PERCENT AUTO 4 % (0-6); Hematocrit 31.1 % (37.0-53.0); Hemoglobin 10.1 g/dL (13.5-17.5); IMMATURE GRAN ABSOLUTE AUTO 0.08 K/mm3 (0.00-0.10); IMMATURE GRAN PERCENT AUTO 1 % (0-1); LYMPHOCYTES ABSOLUTE AUTO 0.99 K/mm3 (0.84-5.20); LYMPHOCYTES PERCENT AUTO 9 % (21-46); MONOCYTES ABSOLUTE AUTO 0.85 K/mm3 (0.16-1.47); MONOCYTES PERCENT AUTO 8 % (4-13); Mean Corpuscular HGB Conc 32.5 g/dL (31.5-36.5); Mean Corpuscular Volume 90 fL (80-100); NEUTROPHILS ABSOLUTE AUTO 8.62 K/mm3 (1.96-9.15); NEUTROPHILS PERCENT AUTO 78 % (41-73); NRBC ABSOLUTE 0.00 K/mm3 (0.00-0.02); NRBC Auto 0.0 /100 WBC (0.0-0.2); Platelet Count 210 K/mm3 (150-400); RDW Coefficient Variation 14.8 % (11.7-14.2); RDW Standard Deviation 48.1 fL (35.1-46.3)
[2025-03-14 04:53] LABS: Anion Gap 12.0 mmol/L (3-11); Blood Urea Nitrogen 56.0 mg/dL (8-24); CO2, Blood 22.0 mmol/L (21-32); Calcium, Blood 7.1 mg/dL (8.5-10.1); Chloride, Blood 105.0 mmol/L (98-108); Creatinine, Blood 2.42 mg/dL (0.60-1.20); Glucose, Blood 160.0 mg/dL (70-99); Potassium, Blood 4.7 mmol/L (3.5-5.5); Sodium, Blood 134.0 mmol/L (136-145)
--- NOTE | 2025-03-14 04:55 | NUR ---
NOC SUMMARY- PT PAIN MANAGED WELL. PT REPOSITIONED TOLERATED. PT VOIDING AND TOLERATING PO. PT HAS BEEN RESTING COMFORTABLY. NO NEW ISSUES. CALL LIGHT IN REACH.
[2025-03-14 07:56] VITALS: BP 151/54
[2025-03-14] MEDS ORDERED: HYDROcodone 5-APAP 325 TAB PO PRN ×2 (11:35→14:50)
[2025-03-14 14:57] VITALS: BP 113/52
--- NOTE | 2025-03-14 18:00 | NUR ---
SHIFT SUMMARY A/OX4, CALLS APPROPRIATELY. KILO WRAP AND KNEE IMMOBOLIZERS TO BLE. SWELLING GREATER IN R>L, WITH SHARP PAINS NOTED IN R. KNEE. DR. MEZA NOTIFIED AND AT BEDSIDE FOR EVAL. MEDICATED FOR PAIN PER EMAR. CBG AC/HS. PLAN IS FOR PLACEMENT TO SNF. NO ACUTE CHANGES AT THIS TIME.
[2025-03-14 19:28] VITALS: BP 129/51
--- NOTE | 2025-03-15 04:12 | NUR ---
SHIFT SUMMARY POD 3 BILATERAL QUADRICEP TENDON REPAIR. A&O X4. PAIN MANAGED WELL PER EMAR. BLE IMMOBILIZERS IN PLACE, KILO WRAP C/D/I. PT USING URINAL INDEPENDENTLY. PLAN TO DISCHARGE TO SNF. PT REQUESTING [facility] LOCATION. PT RESTING IN BED, RESPIRATIONS EVEN AND UNLABORED. CALL LIGHT WITHIN REACH.
[2025-03-15 05:00] LABS: Anion Gap 10.0 mmol/L (3-11); Blood Urea Nitrogen 56.0 mg/dL (8-24); CO2, Blood 22.0 mmol/L (21-32); Calcium, Blood 8.2 mg/dL (8.5-10.1); Chloride, Blood 107.0 mmol/L (98-108); Creatinine, Blood 2.09 mg/dL (0.60-1.20); Glucose, Blood 204.0 mg/dL (70-99); Potassium, Blood 4.8 mmol/L (3.5-5.5); Sodium, Blood 134.0 mmol/L (136-145)
[2025-03-15 05:14] LABS: BASOPHILS ABSOLUTE AUTO 0.05 K/mm3 (0.00-0.23); BASOPHILS PERCENT AUTO 1 % (0-2); EOSINOPHILS ABSOLUTE AUTO 0.44 K/mm3 (0.00-0.68); EOSINOPHILS PERCENT AUTO 5 % (0-6); Hematocrit 31.9 % (37.0-53.0); Hemoglobin 10.5 g/dL (13.5-17.5); IMMATURE GRAN ABSOLUTE AUTO 0.10 K/mm3 (0.00-0.10); IMMATURE GRAN PERCENT AUTO 1 % (0-1); LYMPHOCYTES ABSOLUTE AUTO 0.88 K/mm3 (0.84-5.20); LYMPHOCYTES PERCENT AUTO 9 % (21-46); MONOCYTES ABSOLUTE AUTO 0.79 K/mm3 (0.16-1.47); MONOCYTES PERCENT AUTO 8 % (4-13); Mean Corpuscular HGB Conc 32.9 g/dL (31.5-36.5); Mean Corpuscular Volume 90 fL (80-100); NEUTROPHILS ABSOLUTE AUTO 7.41 K/mm3 (1.96-9.15); NEUTROPHILS PERCENT AUTO 77 % (41-73); NRBC ABSOLUTE 0.00 K/mm3 (0.00-0.02); NRBC Auto 0.0 /100 WBC (0.0-0.2); Platelet Count 216 K/mm3 (150-400); RDW Coefficient Variation 14.7 % (11.7-14.2); RDW Standard Deviation 47.9 fL (35.1-46.3)
[2025-03-15 05:50] VITALS: BP 132/50
[2025-03-15 07:13] VITALS: BP 134/52
[2025-03-15 14:21] VITALS: BP 145/52
[2025-03-15 19:42] VITALS: BP 138/49
[2025-03-16 03:42] VITALS: BP 139/56
--- NOTE | 2025-03-16 04:38 | NUR ---
SHIFT SUMMARY POD 3 BILATERAL QUADRICEP TENDON REPAIR. A&O X4. PAIN MANAGED WELL PER EMAR. BLE IMMOBILIZERS IN PLACE, KILO WRAP AND NON ADHERENT DRESSING C/D/I. BLE SENSATION INTACT, CAP REFILL < 3 SEC, AND PT STATES NEUROPATHY @ BASELINE. PT USING URINAL INDEPENDENTLY. PLAN TO DISCHARGE TO SNF. PT RESTING IN BED, RESPIRATIONS EVEN AND UNLABORED. CALL LIGHT WITHIN REACH.
[2025-03-16 07:04] VITALS: BP 126/52
--- NOTE | 2025-03-16 17:59 | NUR ---
SHIFT SUMMARY PT REFUSED PT TODAY. C/O INCREASING LEG PAIN R PATE[place]AR REGION TODAY. R LEG IMMOBILIZER READJUSTED. WILL CONTINUE TO MONITOR.
[2025-03-16 20:01] VITALS: BP 132/54
--- NOTE | 2025-03-17 04:55 | NUR ---
SHIFT SUMMARY POD5 BILATERAL QUADRICEPT TEAR REPAIRS. DRESSING AND BILATERAL IMMOBILIZERS REMAIN IN PLACE. VSS. PT SLEPT WELL T/O THE NIGHT. MEDICATED FOR PAIN PER EMAR W/ GOOD RESULTS. COLD THERAPY OFFERED T/O THE NIGHT. SKIN TEAR ON L ELBOW CLEANSED AND REDRESSED. OVERALL, NO ACUTE EVENTS NOTED. PLAN TO CONTINUE THERAPY AND D/C TO SNF WHEN APPROPRIATE THE PATIENT IS CURRENTLY SLEEPING, IN NO DISTRESS, CALL LIGHT IN REACH
[2025-03-17 05:34] VITALS: BP 127/50
[2025-03-17 07:44] VITALS: BP 143/43
[2025-03-17 07:45] VITALS: BP 130/44
--- NOTE | 2025-03-17 10:18 | NUR ---
DRESSING CHANGED TO BILAT KNEES, TOOK CARE TO NOT ALLOW ANY FLEXION OF KNEE. DRESSING CHANGED PER ORDERS WITH XEROFORM, 4X4, ABD PADS, AND KILO WRAP. CARE TO PLACE KNEE IMMOBILIZERS IN CORRECT POSITION TO DENY KNEE FLEXION. PT TOLERATED WELL. SURGICAL SITE WITH JARETH. INCISION W/O BLEEDING/PURULENT DRAINAGE. PT WORKED WITH PHYSICAL THERAPY AND THIS RN WELL- WALKED TO BATHROOM, VOIDED, AND BACK. PT NOW RESTING IN BED.
[2025-03-17 15:25] VITALS: BP 142/47
[2025-03-17 15:26] VITALS: BP 136/45
--- NOTE | 2025-03-17 18:12 | NUR ---
SHIFT SUMMARY POD 5 REPAIR BILATERAL QUADRICEPS. MINIMAL PAIN TODAY CONTROLLED WELL PER EMAR. TOLERATING FOOD & FLUIDS WELL. WORKED w/THERAPY - ABLE TO STAND AT BEDSIDE. USES URINAL TO VOID. BILATERAL DRESSINGS CHANGED TODAY. CURRENTLY RESTING IN BED w/CALL LIGHT WITHIN REACH.
[2025-03-17 19:45] VITALS: BP 131/51
[2025-03-18 04:08] VITALS: BP 132/45
--- NOTE | 2025-03-18 06:38 | NUR ---
NOC SUMMARY- PT HAS RESTED QUIETLY THROUGHOUT SHIFT. PAIN MANAGED WELL. PT VOIDING AND TOLERATING PO. NO NEW ISSUES. CALL LIGHT IN REACH.
[2025-03-18 07:49] VITALS: BP 166/53
[2025-03-18 07:50] VITALS: BP 156/56
[2025-03-18 14:35] VITALS: BP 131/46
[2025-03-18 14:36] VITALS: BP 133/44
--- NOTE | 2025-03-18 17:50 | NUR ---
SUMMARY NO ACUTE CHANGES THIS SHIFT. VSS. AXO4. BILAT KNEE IMMOBILIZERS IN PLACE - DRESSINGS UNDERNEATH VISUALIZED- CDI. PAIN MINIMAL PER PT TODAY BUT PT WANTING TO AVOID NARCOTICS - PO TYLENOL ORDERED INSTEAD. WORKED WITH PHYSICAL THERAPY TODAY AND OCCUPATIONAL THERAPY - TOLERATEDWELL BUT PT "EXHAUSTED" AFTERWARDS. STARTED SHIFT ADAMANT THAT HE WOULD BE GOING HOME TODAY. WITH DISCUSSION WITH CLAIMS ADJUSTER AND NICO, ALONG WITH INFORMATION ABOUT ACCEPTANCE TO [facility] [place] TOMORROW - PT DECIDED TO STAY. BLOOD SUGARS STILL LABILE AT TIMES- INSULIN PER EMAR. PT RESTING OFF AND ON POST PT/OT TODAY. COOPERATIVEW. HAD BM. TOLERATING MEALS WELL. USING CALL LIGHT APPROPRIATELY.
[2025-03-18 19:54] VITALS: BP 129/50
[2025-03-19 03:57] VITALS: BP 138/57
--- NOTE | 2025-03-19 04:52 | NUR ---
SHIFT SUMMARY NO ACUTE CHANGES OVERNIGHT. PT DENIES PAIN, SURGICAL SITE WNL, DRESSINGS INTACT. PT HAS RESTED T/O THE NIGHT. EYES CLOSED DURING NURSE ROUNDS, CHEST RISES AND FALLS. VITALS STABLE. PLAN IS FOR POSSIBLE SNF DISCHARGE TODAY. BED IN LOWEST POSITION, CALL LIGHT WITHIN REACH.
[2025-03-19 07:27] VITALS: BP 135/62
--- NOTE | 2025-03-19 14:09 | NUR ---
DISCHARGE PT DISCHARGED VIA [employer]SPORT WITH [employer]. LEFT WITH ALL BELONGINGS INCLUDING MEDICATIONS. ATTEMPTED TO CALL REPORT X2 TO [facility] AND VOICEMAIL LEFT WITH NURSING STAFF. DISCHARGE INSTRUCTIONS AND PHYSICAL SCRIPT CONFIRMED IN PT PACKET. IV REMOVED FROM RAC AND TOLERATED WELL.
== END 2025-03-19 12:40 | DRG 501 ==
LOC: ER 10:44 → SURS 15:31
PROVIDERS: Emergency Medicine; Orthopaedic Surgery; ADMIT Family Medicine
PROC: 0LQM0ZZ Repair Left Upper Leg Tendon, Open Approach (ICD-10-PCS; 2025-03-12)
PROC: 0LQL0ZZ Repair Right Upper Leg Tendon, Open Approach (ICD-10-PCS; principal; 2025-03-12 11:30)
DX: S76.111A Strain of right quadriceps muscle, fascia and tendon, initial encounter (principal); E87.1 Hypo-osmolality and hyponatremia; N18.4 Chronic kidney disease, stage 4 (severe); S76.112A Strain of left quadriceps muscle, fascia and tendon, initial encounter; W18.39XA Other fall on same level, initial encounter; I12.9 Hypertensive chronic kidney disease with stage 1 through stage 4 chronic kidney disease, or unspecified chronic kidney disease; E11.22 Type 2 diabetes mellitus with diabetic chronic kidney disease; I25.10 Atherosclerotic heart disease of native coronary artery without angina pectoris; N40.0 Benign prostatic hyperplasia without lower urinary tract symptoms; K21.9 Gastro-esophageal reflux disease without esophagitis; D63.1 Anemia in chronic kidney disease; E03.9 Hypothyroidism, unspecified; D72.829 Elevated white blood cell count, unspecified; Z88.8 Allergy status to other drugs, medicaments and biological substances; Z79.84 Long term (current) use of oral hypoglycemic drugs; Z79.4 Long term (current) use of insulin; Z79.82 Long term (current) use of aspirin; Z79.890 Hormone replacement therapy; Z95.1 Presence of aortocoronary bypass graft; Z95.0 Presence of cardiac pacemaker; Z87.891 Personal history of nicotine dependence
CPT/HCPCS: 36415; 73700; 76882; 80048; 80053; 82947; 83036; 85025; 94760; 97110; 97116; 97163; 97165; 97530; 97535; 99284-25; A9270; C1713; J0690; J1100; J1644; J1815; J1885; J2405; J2704; J3010; J7120

== ENCOUNTER 2025-03-23 18:19 | Emergency (ER) | payer MEDICARE ==
[~2025-03-23] VITALS: Ht 180.3 cm; Wt 88.5 kg
[~2025-03-23 18:19] MED LIST changes: +FUROSEMIDE40 MG PO
[2025-03-23 18:43] VITALS: BP 151/58
== END 2025-03-23 20:00 | disposition home or self-care (01) ==
LOC: ER 18:19
DX: S41.112A Laceration without foreign body of left upper arm, initial encounter (principal); M25.562 Pain in left knee; M25.561 Pain in right knee; W18.2XXA Fall in (into) shower or empty bathtub, initial encounter; I10 Essential (primary) hypertension; E11.9 Type 2 diabetes mellitus without complications; I25.10 Atherosclerotic heart disease of native coronary artery without angina pectoris; K21.9 Gastro-esophageal reflux disease without esophagitis; E03.9 Hypothyroidism, unspecified; Z95.1 Presence of aortocoronary bypass graft; Z95.0 Presence of cardiac pacemaker; Z88.8 Allergy status to other drugs, medicaments and biological substances; Z88.5 Allergy status to narcotic agent; Z79.82 Long term (current) use of aspirin; Z79.890 Hormone replacement therapy; Z79.4 Long term (current) use of insulin; Z79.899 Other long term (current) drug therapy; Z87.891 Personal history of nicotine dependence
CPT/HCPCS: 73560-LT; 73560-RT; 99283-25

== ENCOUNTER 2025-04-21 15:46 | Emergency (ER) | payer MEDICARE ==
[~2025-04-21] VITALS: Ht 180.3 cm; Wt 83.5 kg
[~2025-04-21 15:46] MED LIST changes: +ACET500 PO; +HUMALOG KW100 UNIT/1 SC; +THERA-D2000 UNIT PO
[2025-04-21 15:54] VITALS: BP 128/57
[2025-04-21 16:56] LABS: BASOPHILS ABSOLUTE AUTO 0.09 K/mm3 (0.00-0.23); BASOPHILS PERCENT AUTO 1 % (0-2); EOSINOPHILS ABSOLUTE AUTO 0.12 K/mm3 (0.00-0.68); EOSINOPHILS PERCENT AUTO 1 % (0-6); Hematocrit 38.8 % (37.0-53.0); Hemoglobin 12.7 g/dL (13.5-17.5); IMMATURE GRAN ABSOLUTE AUTO 0.19 K/mm3 (0.00-0.10); IMMATURE GRAN PERCENT AUTO 1 % (0-1); LYMPHOCYTES ABSOLUTE AUTO 0.68 K/mm3 (0.84-5.20); LYMPHOCYTES PERCENT AUTO 4 % (21-46); MONOCYTES ABSOLUTE AUTO 0.87 K/mm3 (0.16-1.47); MONOCYTES PERCENT AUTO 5 % (4-13); Mean Corpuscular HGB Conc 32.7 g/dL (31.5-36.5); Mean Corpuscular Volume 87 fL (80-100); NEUTROPHILS ABSOLUTE AUTO 15.96 K/mm3 (1.96-9.15); NEUTROPHILS PERCENT AUTO 89 % (41-73); NRBC ABSOLUTE 0.00 K/mm3 (0.00-0.02); NRBC Auto 0.0 /100 WBC (0.0-0.2); Platelet Count 435 K/mm3 (150-400); RDW Coefficient Variation 14.8 % (11.7-14.2); RDW Standard Deviation 47.8 fL (35.1-46.3)
[2025-04-21 17:18] LABS: Alanine Aminotransfer (ALT/SGP 50.0 U/L (12-78); Albumin, Blood 2.3 g/dL (3.4-5.0); Albumin/Globulin Ratio 0.7 (0.8-1.8); Anion Gap 12.0 mmol/L (3-11); Aspartate Aminotrans (AST/SGOT 48.0 U/L (12-37); Bilirubin, Total 0.5 mg/dL (0.1-1.0); Blood Urea Nitrogen 51.0 mg/dL (8-24); CO2, Blood 21.0 mmol/L (21-32); Calcium, Blood 8.5 mg/dL (8.5-10.1); Chloride, Blood 104.0 mmol/L (98-108); Creatinine, Blood 2.08 mg/dL (0.60-1.20); Globulin, Blood 3.2 g/dL (2.2-4.0); Glucose, Blood 276.0 mg/dL (70-99); Magnesium, Blood 2.2 mg/dL (1.6-2.4); Potassium, Blood 4.6 mmol/L (3.5-5.5); Sodium, Blood 132.0 mmol/L (136-145); Total Protein, Blood 5.5 g/dL (6.4-8.2)
[2025-04-21] MEDS ORDERED: Milk 150ML/Molasses 150ML (300ML Total) PR ONE (18:15)
[2025-04-21] MEDS ORDERED: MIRALAX17 GM PO (18:58)
== END 2025-04-21 19:50 | disposition home or self-care (01) ==
LOC: ER 15:46
PROVIDERS: Emergency Medicine
DX: K56.41 Fecal impaction (principal); Z88.8 Allergy status to other drugs, medicaments and biological substances; Z79.899 Other long term (current) drug therapy; Z79.82 Long term (current) use of aspirin
CPT/HCPCS: 51798; 74177; 80053; 83690; 83735; 85025; 99284-25; Q9967